=== PATIENT | female | born 1975 | race Caucasian/White ===

== ENCOUNTER 2022-04-22 01:01 | Emergency (ER) | payer MEDICAID ==
[~2022-04-22] VITALS: Ht 157.5 cm; Wt 90.3 kg
[2022-04-22 01:20] VITALS: BP 153/90
--- NOTE | 2022-04-22 01:23 | NUR ---
TO LOBBY A/W BED AMBULATORY
--- NOTE | 2022-04-22 04:13 | NUR ---
PT TO 11
--- NOTE | 2022-04-22 04:38 | NUR ---
Dr. Thomas examining patient.
--- NOTE | 2022-04-22 04:42 | NUR ---
Patient resting in bed, A/Ox4, chest rise and fall symmetrical, no s/s of distress.
--- NOTE | 2022-04-22 05:08 | NUR ---
X-Ray at bedside.
[2022-04-22] MEDS ORDERED: NAPR-1704 PO (05:24)
[2022-04-22 05:38] VITALS: BP 135/86
== END 2022-04-22 05:39 | disposition home or self-care (01) ==
LOC: MED 01:01
DX: S63.611A Unspecified sprain of left index finger, initial encounter (principal); Z88.0 Allergy status to penicillin; X58.XXXA Exposure to other specified factors, initial encounter; Y93.89 Activity, other specified; Y92.89 Other specified places as the place of occurrence of the external cause; Y99.8 Other external cause status
CPT/HCPCS: 29130; 73140; 99283; Q0092